=== PATIENT | male | born 1995 | race American Indian/Alaskan Native ===

== ENCOUNTER 2017-04-20 21:40 | Emergency (ER) | payer OTHER ==
[2017-04-20 21:50] VITALS: BP 105/66
[2017-04-20] MEDS ORDERED: MOTRIN PO ONE (22:41)
[2017-04-20] MEDS ORDERED: BOOSTRIX IM ONE (22:41)
[2017-04-20] MEDS ORDERED: XYLOCAINE 2%/EPI 1:100,000 INFILTRATI ONE (22:42)
--- NOTE | 2017-04-20 22:51 | Emergency Department Report ---
ED Laceration HPI - HPI Chief Complaint: Wound/Laceration Stated Complaint: LIP LACERATION Time Seen by Provider: 04/20/17 22:24 Tetanus Status: Unknown Laceration Symptoms: No Foreign Body Sensation, No Numbness, No Weakness, No Pain Other History: Patient is a 21-year-old male presents to ED complaining of laceration to the leg that happened earlier today. Patient states he was playing basketball and someone hit him on within elbow on the lip. Patient states minimal bleeding. She is bleeding has stopped. Patient states he sustained a laceration to his upper lip. Patient states he is tetanus status is unknown. He denies fevers /chills/nausea/vomiting/fever or problems. ED Review of Systems ROS: Stated complaint: LIP LACERATION Other details as noted in HPI Constitutional: denies: chills, fever Eyes: denies: eye pain, eye discharge, vision change ENT: denies: ear pain, throat pain Respiratory: denies: cough, shortness of breath, wheezing Cardiovascular: denies: chest pain, palpitations Endocrine: no symptoms reported Gastrointestinal: denies: abdominal pain, nausea, diarrhea Genitourinary: denies: urgency, dysuria Musculoskeletal: denies: back pain, joint swelling, arthralgia Skin: denies: rash, lesions Neurological: denies: headache, weakness, paresthesias Psychiatric: denies: anxiety, depression Hematological/Lymphatic: denies: easy bleeding, easy bruising ED Past Medical Hx - Past Medical History Hx Hypertension: No Hx Heart Attack/AMI: No Hx Renal Disease: No Hx Sickle Cell Disease: No Hx Asthma: No Hx COPD: No - Surgical History Additional Surgical History: LEFT FOOT - Social History Smoking Status: Never Smoker Substance Use Type: None - Medications Home Medications: Home Medications Medication Instructions Recorded Confirmed Last Taken Type Amoxicillin/K Clav Tab [Augmentin 1 tab PO Q12HR #12 tab 04/20/17 Unknown Rx 875 mg] Ibuprofen [Motrin 800 MG tab] 800 mg PO ONCE #30 tablet 04/20/17 Unknown Rx Laceration Physical Exam - Exam General: Vital signs noted. No distress. Alert and acting appropriately. Wound Length (cm): 1 (0.5cm) Laceration Location: Other (Lip upper) Full Body Front + Back: 1 - 0.5 cm through and throug laceration Laceration Exam: Yes Normal Distal CMS, No Foreign Body, No Exposed Tendon, Vessel, or Nerve, No Tendon Injury ED Course Vital Signs 04/20/17 04/20/17 21:48 22:11 Temperature 98.4 F Pulse Rate 66 Respiratory 18 18 Rate Blood Pressure 105/66 O2 Sat by Pulse 100 Oximetry ED Medical Decision Making - Medical Decision Making 21-year-old male presents with upper lip laceration ED course: Patient received IM boosterix and Motrin The 1cm laceration wound was prepped and draped in sterile fashion. Anesthesia was achieved with 3mL of 1% lidocaine. The wound was irrigated with 100cc NS and explored. There were no foreign bodies The wound was reapproximated in 1 layer with running sutures suing with three 4-0 chromic gut sutures in the subcutaneuos with noninterrupted sutures percutaneously. There was excellent reapproximation of the wound edges with dermabond on the dermis. sterile strips were placed on upper lip. The patient tolerated the procedure without complication Vital signs are normal patient is in no acute distress Discussed patient to follow-up with primary care physician Critical care attestation.: If time is entered above; I have spent that time in minutes in the direct care of this critically ill patient, excluding procedure time. ED Disposition Clinical Impression: Laceration of lip without complication Qualifiers: Encounter type: initial encounter Qualified Code(s): S01.511A - Laceration without foreign body of lip, initial encounter Disposition: DISCHARGED TO HOME OR SELFCARE Is pt being admited?: No Does the pt Need Aspirin: No Condition: Stable Instructions: Laceration (ED), Skin Adhesive Care (ED), Absorbable Suture Care (ED) Additional Instructions: Follow instructions as given Taking medication as described Follow-up with PCP 5-7 days. Prescriptions: Amoxicillin/K Clav Tab [Augmentin 875 mg] 1 tab PO Q12HR #12 tab Ibuprofen [Motrin 800 MG tab] 800 mg PO ONCE #30 tablet Referrals: PRIMARY CARE, [Primary Care Provider] - 3-5 Days [facility] [Outside] - 3-5 Days [facility] [Outside] - 3-5 Days [facility] [Outside] - 3-5 Days Forms: Work/School Release Form(ED)
== END 2017-04-20 23:30 | disposition home or self-care (01) ==
LOC: ED 21:40
DX: S01.511A Laceration without foreign body of lip, initial encounter (principal); W50.0XXA Accidental hit or strike by another person, initial encounter; Y93.67 Activity, basketball; Y99.9 Unspecified external cause status; Y92.89 Other specified places as the place of occurrence of the external cause
CPT/HCPCS: 90471; 90715